=== PATIENT | male | born 1945 | race Hispanic/Latino ===

== ENCOUNTER → 2018-10-29 | Outpatient (CLI) | payer OTHER ==
[~2018-10-29] MED LIST: DM/P1POW2 PO; DOCU100T9 PO; GABA300S PO; GLIP5TAB11 PO; INSU100V33 SQ; LISI-613 PO; LOVA10TA2 PO; METF-446 PO; METO25TA6 PO; RANI150T7 PO
== END | disposition home or self-care (01) ==
LOC: RAH 12:23
PROVIDERS: ATTEND Internal Medicine
DX: M17.0 Bilateral primary osteoarthritis of knee (principal); M11.262 Other chondrocalcinosis, left knee; M11.261 Other chondrocalcinosis, right knee
CPT/HCPCS: 73562

== ENCOUNTER → 2019-04-14 | Outpatient (CLI) | payer OTHER | END | disposition home or self-care (01) | LOC: RAH 10:36 | PROVIDERS: ATTEND Internal Medicine | DX: M47.816 Spondylosis without myelopathy or radiculopathy, lumbar region (principal) | CPT/HCPCS: 72100 ==

== ENCOUNTER → 2019-05-19 | Outpatient (CLI) | payer OTHER | END | disposition home or self-care (01) | LOC: RAH 14:40 | PROVIDERS: ATTEND Internal Medicine | DX: M46.1 Sacroiliitis, not elsewhere classified (principal); M54.5 Low back pain; M54.2 Cervicalgia; M48.061 Spinal stenosis, lumbar region without neurogenic claudication; M47.816 Spondylosis without myelopathy or radiculopathy, lumbar region; M12.88 Other specific arthropathies, not elsewhere classified, other specified site; M54.16 Radiculopathy, lumbar region | CPT/HCPCS: 72148 ==

== ENCOUNTER → 2019-07-07 | Outpatient (CLI) | payer OTHER ==
[~2019-07-07] VITALS: Ht 167.6 cm; Wt 87.5 kg
[~2019-07-07] MED LIST changes: +REGADENOSON 0.4 MG/5 ML PF SYG IVP SCH
== END | disposition home or self-care (01) ==
LOC: SHCH 08:28
PROVIDERS: ATTEND Internal Medicine Cardiovascular Disease
DX: Z01.818 Encounter for other preprocedural examination (principal); R06.00 Dyspnea, unspecified
CPT/HCPCS: 78452; 93017; 96374; A9500 ×2; J2785

== ENCOUNTER → 2019-07-25 | Outpatient (CLI) | payer OTHER ==
[~2019-07-25] MED LIST changes: -REGADENOSON 0.4 MG/5 ML PF SYG IVP SCH
== END | disposition home or self-care (01) ==
LOC: SHCH 15:07
PROVIDERS: ATTEND Internal Medicine Cardiovascular Disease
DX: I10 Essential (primary) hypertension (principal)
CPT/HCPCS: 93306

== ENCOUNTER 2019-09-21 08:00 | Observation (INO) | payer OTHER ==
[~2019-09-21] VITALS: Ht 170.2 cm; Wt 87.8 kg
[~2019-09-21 08:00] MED LIST changes: -DM/P1POW2 PO; -GLIP5TAB11 PO; -INSU100V33 SQ; -LOVA10TA2 PO; -METF-446 PO; -RANI150T7 PO
[2019-09-21 09:47] LABS: BASOPHILS % (AUTO) 0.7 % (0.0-5.0); EOSINOPHILS % (AUTO) 2.6 % (0.0-8.0); HEMATOCRIT 44.6 % (42-54); LYMPHOCYTES % (AUTO) 28.1 % (21.0-51.0); MEAN CORPUSCULAR HEMOGLOBIN 30.3 pg (27.0-33.0); MEAN CORPUSCULAR HGB CONC 32.3 g/dL (32.0-36.0); MEAN CORPUSCULAR VOLUME 93.7 fL (79-99); MONOCYTES % (AUTO) 7.4 % (3.0-13.0); NEUTROPHILS % (AUTO) 60.9 % (40.0-77.0); PLATELET COUNT (AUTO) 198 K/uL (130-400); RED BLOOD CELL COUNT(AUTO) 4.76 MIL/uL (4.50-6.20); RED CELL DISTRIBUTION WIDTH 13.6 % (11.0-15.5); WHITE BLOOD COUNT (AUTO) 9.8 K/uL (4.8-10.8)
[2019-09-21 09:58] LABS: CREATININE 1.1 mg/dL (0.5-1.5); POTASSIUM 4.8 mmol/L (3.5-5.1)
[2019-09-21 10:32] VITALS: BP 149/70
[2019-09-21] MEDS ORDERED: TRAM50TA4 PO (10:35)
[2019-09-21] MEDS ORDERED: METF-444 PO (10:35)
[2019-09-23] VITALS (23 sets, daily range): BP systolic 132–190; BP diastolic 57–92
[2019-09-23] MEDS ORDERED: SODIUM CHLORIDE 0.9% 1000ML 1,000 ML IV ONE (05:58)
[2019-09-23] MEDS ORDERED: LIDOCAINE PF 2% 5ML ABBOJECT ONE (06:39)
[2019-09-23] MEDS ORDERED: SUCCINYLCHOLINE 200MG/10ML SYR ONE (06:39)
[2019-09-23] MEDS ORDERED: PROPOFOL 10 MG/ML 20ML VIAL IV ONE (06:39)
[2019-09-23] MEDS ORDERED: DEXAMETHASONE SOD PHOSPHATE 10MG/ML 1ML VIAL ONE ×2 (06:40→07:03)
[2019-09-23] MEDS ORDERED: GLYCOPYRROLATE 1 MG/5 ML SYRINGE ONE (06:40)
[2019-09-23] MEDS ORDERED: NEOSTIGMINE 5MG/5ML SYR IV ONE (06:40)
[2019-09-23] MEDS ORDERED: MIDAZOLAM HCL 1 MG/ML 2ML VIAL ONE (06:40)
[2019-09-23] MEDS ORDERED: ONDANSETRON HCL 4 MG/2 ML VIAL ONE (06:40)
[2019-09-23] MEDS ORDERED: ROCURONIUM 10MG/1ML SYR 10 MG/ML ML ONE (06:40)
[2019-09-23] MEDS ORDERED: FENTANYL CITRATE PF 50 MCG/1 ML 2ML VIAL ONE ×2 (06:41→09:55)
[2019-09-23] MEDS ORDERED: BUPIVACAINE/EPI/PF 0.5% 30ML VIAL IJ ONE (06:59)
[2019-09-23] MEDS ORDERED: DURAMORPH PF1 MG/ML 10ML AMP IV ONE (06:59)
[2019-09-23] MEDS ORDERED: CEFAZOLIN SODIUM 1 GM VIAL ONE ×2 (06:59→07:17)
[2019-09-23] MEDS ORDERED: THROMBIN-JMI 20000 UNIT KIT TP ONE (07:00)
[2019-09-23] MEDS ORDERED: EPHEDRINE SULFATE 50 MG/ML AMPULE ONE (07:03)
[2019-09-23] MEDS ORDERED: ARTIFICIAL TEARS 3.5 GM OINTMENT ONE (08:18)
[2019-09-23] MEDS ORDERED: SODIUM CHLORIDE 0.9% 10 ML VIAL IVP PRN (10:15)
[2019-09-23] MEDS ORDERED: PROMETHAZINE HCL 25 MG/ML 1ML AMPULE IM PRN (10:15)
[2019-09-23] MEDS ORDERED: TRAMADOL HCL 50 MG TABLET PO PRN ×2 (10:15→10:30)
[2019-09-23] MEDS ORDERED: CEFAZOLIN SODIUM 1 GM VIAL IVP SCH (10:15)
[2019-09-23] MEDS ORDERED: LACTATED RINGERS 1000ML 1,000 ML IV SCH (10:15)
[2019-09-23] MEDS ORDERED: LABETALOL HCL 5 MG/ML 20ML VIAL IV ONE (10:44)
[2019-09-23] MEDS ORDERED: MEPERIDINE-PF 25 MG/ML SYG ONE ×2 (10:54→11:04)
[2019-09-23] MEDS: DEXAMETHASONE SOD PHOSPHATE 4 MG/ML 1ML VIAL IVP SCH ×3 (12:43→22:15)
--- NOTE | 2019-09-23 14:01 | NUR ---
SORAYA LIRA drain started as directed 4 hours post sx
--- NOTE | 2019-09-23 15:57 | NUR ---
[id number] patient signed CARRANZA Letter, I faxed CARRANZA Letter to [id number] and placed in chart under consent tab
[2019-09-23] MEDS: HYDROCODONE/ACETAMINOPHEN 5/325 MG TAB PO PRN ×2 (16:24→19:41)
[2019-09-23] MEDS: METOPROLOL TARTRATE 25 MG TAB PO SCH (19:40)
[2019-09-23] MEDS: GABAPENTIN 300 MG CAPSULE PO SCH (19:40)
[2019-09-23] MEDS: METFORMIN HCL 500 MG TABLET PO SCH (19:41)
[2019-09-23] MEDS: DOCUSATE SODIUM 100 MG CAP PO SCH (19:41)
--- NOTE | 2019-09-23 20:45 | NUR ---
AMBULATION PATIENT ABLE TO AMBULATE ALL AROUND THE [place] ON FOURTH FLOOR WITH NO DIZZINESS, NAUSEA, OR SOB. DRESSING TO LOWER BACK WAS REINFORCED BY DAY RN AND IS HOLDING. SORAYA DRAIN IN PLACE ASWELL.
[2019-09-23] MEDS: INSULIN HUMULIN R 100 UNIT/ML 3ML SQ SCH (21:00)
[2019-09-23] MEDS: MORPHINE SULFATE 2 MG/ML 1ML SYG IVP PRN (22:01)
[2019-09-24 00:08] VITALS: BP 150/65
[2019-09-24] MEDS: HYDROCODONE/ACETAMINOPHEN 5/325 MG TAB PO PRN ×2 (00:47→08:13)
[2019-09-24] MEDS: MORPHINE SULFATE 2 MG/ML 1ML SYG IVP PRN ×2 (02:51→05:09)
[2019-09-24] MEDS: DEXAMETHASONE SOD PHOSPHATE 4 MG/ML 1ML VIAL IVP SCH (03:45)
[2019-09-24 04:00] VITALS: BP 127/74
[2019-09-24] MEDS: INSULIN HUMULIN R 100 UNIT/ML 3ML SQ SCH (05:59)
[2019-09-24] MEDS: METFORMIN HCL 500 MG TABLET PO SCH (08:13)
[2019-09-24 08:21] VITALS: BP 131/83
[2019-09-24] MEDS ORDERED: LISINOPRIL 20 MG TABLET PO SCH (09:00)
[2019-09-24] MEDS: DOCUSATE SODIUM 100 MG CAP PO SCH (09:27)
[2019-09-24] MEDS: METOPROLOL TARTRATE 25 MG TAB PO SCH (09:27)
[2019-09-24] MEDS: GABAPENTIN 300 MG CAPSULE PO SCH (09:27)
--- NOTE | 2019-09-24 10:30 | NUR ---
dressing changed to pt's lower back and lavinia drain removed; pt has a well approx. inc. line with jenaro in place, no redness or edema noted, slight fresh bloody drainage noted; area cleansed with betadine then dry gauze dressing applied; pt was pre-medicated with pain pills and tolerated proc. well; pt's was at bedside and watched the process and stated understanding of wound care instructions that i gave them.
--- NOTE | 2019-09-24 11:10 | NUR ---
pt and stated understanding of all d/c instructions on after care for a laminectomy surgery including---f/u appointment, inc. line care, activity restrictions, signs and symptoms to watch for and report to md and pain medications--script for toradol given; i have also given the patient a staple removed kit and instructed pt to take this with them on f/u appointment with dr borja; pt's here to drive him home.
== END 2019-09-24 11:48 | disposition home or self-care (01) ==
LOC: DAHIP 09-23 05:44 → EDSTATUS 09-23 08:00 → 4AH 09-23 11:13
PROVIDERS: ADMIT Neurological Surgery; ATTEND Neurological Surgery
DX: M48.061 Spinal stenosis, lumbar region without neurogenic claudication (principal); E11.9 Type 2 diabetes mellitus without complications; E78.00 Pure hypercholesterolemia, unspecified; I10 Essential (primary) hypertension; J44.9 Chronic obstructive pulmonary disease, unspecified; Z79.84 Long term (current) use of oral hypoglycemic drugs; Z79.899 Other long term (current) drug therapy
CPT/HCPCS: 36415; 63047; 63048; 72020; 80048; 82948 ×5; 85025; 96374; 96375 ×2; 96376 ×3; A4215; A4221; A4222; A4223; A4344; A4510; A4600; A4649 ×4; A4663; A6260; G0378 ×26; J0330; J0690 ×3; J1100 ×5; J2001; J2175 ×2; J2250; J2274; J2405; J2704; J2710; J3010 ×2; J3490 ×4; J7030 ×2; J7120

== ENCOUNTER → 2019-10-23 | Outpatient (CLI) | payer OTHER ==
[~2019-10-23] MED LIST changes: +METF-444 PO; +TRAM50TA4 PO
== END | disposition home or self-care (01) ==
LOC: OIH 10:15
PROVIDERS: ATTEND Neurological Surgery
DX: M51.34 Other intervertebral disc degeneration, thoracic region (principal)
CPT/HCPCS: 72070

== ENCOUNTER → 2020-01-14 | Outpatient (CLI) | payer OTHER | END | disposition home or self-care (01) | LOC: RAH 14:43 | PROVIDERS: ATTEND Internal Medicine | DX: I70.0 Atherosclerosis of aorta (principal); R05 Cough; M47.894 Other spondylosis, thoracic region | CPT/HCPCS: 71046 ==

== ENCOUNTER → 2020-02-03 | Outpatient (CLI) | payer OTHER | END | disposition home or self-care (01) | LOC: RAH 10:00 | PROVIDERS: ATTEND Internal Medicine | DX: M51.26 Other intervertebral disc displacement, lumbar region (principal); M48.061 Spinal stenosis, lumbar region without neurogenic claudication; M47.814 Spondylosis without myelopathy or radiculopathy, thoracic region; M51.24 Other intervertebral disc displacement, thoracic region | CPT/HCPCS: 72146; 72148 ==

== ENCOUNTER → 2023-08-12 | Outpatient (CLI) | payer OTHER ==
[~2023-08-12] MED LIST changes: -GABA300S PO; +GABA300S3 PO; -LISI-613 PO; +LISI20TA24 PO
== END | disposition home or self-care (01) ==
LOC: RAH 10:25
PROVIDERS: ATTEND Internal Medicine
DX: J44.1 Chronic obstructive pulmonary disease with (acute) exacerbation (principal); J44.9 Chronic obstructive pulmonary disease, unspecified; R05.1 Acute cough
CPT/HCPCS: 71046

== ENCOUNTER → 2024-02-11 | Outpatient (CLI) | payer OTHER ==
[~2024-02-11] MED LIST changes: +PRED20TA3 PO
== END | disposition home or self-care (01) ==
LOC: RAH 13:25
DX: M47.26 Other spondylosis with radiculopathy, lumbar region (principal); M51.36 Other intervertebral disc degeneration, lumbar region; M51.17 Intervertebral disc disorders with radiculopathy, lumbosacral region; M48.07 Spinal stenosis, lumbosacral region
CPT/HCPCS: 72148

== ENCOUNTER → 2024-02-20 | Outpatient (CLI) | payer OTHER | END | disposition home or self-care (01) | LOC: RAH 10:45 | PROVIDERS: ATTEND Family Medicine | DX: M16.12 Unilateral primary osteoarthritis, left hip (principal); K57.30 Diverticulosis of large intestine without perforation or abscess without bleeding | CPT/HCPCS: 73721 ==

== ENCOUNTER → 2024-12-14 | Outpatient (CLI) | payer OTHER ==
--- NOTE | 2024-12-14 10:52 | HMCIMG ---
Exam Type: CHEST 2VWS Clinical Information: Chest pain Comparison: None Findings: The lungs are clear of infiltrates. The heart is normal in size. The bony and soft tissue structures of the chest are unremarkable. Impression: Clear lungs.
== END | disposition home or self-care (01) ==
LOC: RAH 10:05
PROVIDERS: ATTEND Internal Medicine
DX: R07.9 Chest pain, unspecified (principal)
CPT/HCPCS: 71046

== ENCOUNTER → 2025-03-29 | Outpatient (CLI) | payer OTHER ==
--- NOTE | 2025-03-29 13:04 | HMCIMG ---
EXAM: XR Chest, 1 View. CLINICAL HISTORY: 79-year-old male with shortness of breath. COMPARISON: 12/14/2024 at 10:19. FINDINGS: LUNGS: The lungs are clear. No consolidation. PLEURAL SPACES: No pleural effusion or pneumothorax. HEART: The heart size is normal. BONES: No acute osseous abnormality. IMPRESSION: 1. No acute cardiopulmonary pathology. /[place]
== END | disposition home or self-care (01) ==
LOC: RAH 09:36
PROVIDERS: ATTEND Nurse Practitioner Family
DX: J20.9 Acute bronchitis, unspecified (principal); R06.02 Shortness of breath
CPT/HCPCS: 71046

== ENCOUNTER → 2025-04-01 | Outpatient (CLI) | payer OTHER ==
--- NOTE | 2025-04-02 00:05 | HMCIMG ---
EXAM: MR Lumbar Spine Without Intravenous Contrast. CLINICAL HISTORY: Spinal stenosis. Neurogenic claudication. TECHNIQUE: Magnetic resonance images of the lumbar spine in multiple planes. CONTRAST: None. COMPARISON: MRI of the lumbar spine. 02/11/2024. FINDINGS: For this examination, spinal levels were labeled assuming five [id number], lumbar-type vertebrae, with the inferior labeled L5. No acute fracture. L4-L5 laminectomy. Loss of the normal lumbar lordosis. Multilevel anterior osteophytes. Moderate reduction in L5-S1 intervertebral disc height with Modic type II degenerative endplate changes. Mild reduction in L4-L5 intervertebral disc height. Normal vertebral body heights. Normal marrow signal of the vertebrae. Conus medullaris terminates at the T12-L1 level. No abnormal epidural masses. The surrounding soft tissues are unremarkable. Individual spinal levels are described as follows: T12-L1: No disc bulge or herniation. No neural foraminal, lateral recess, or spinal canal stenosis. L1-L2: Mild disc bulge of 1 mm. No neural foraminal, lateral recess, or spinal canal stenosis. L2-L3: Mild disc bulge of 2 mm indenting the anterior thecal sac. Mild narrowing of both the lateral recesses and neuroforamina. Mild canal narrowing. L3-L4: Moderate disc bulge of 3 mm indenting the anterior thecal sac and abutting bilateral traversing L4 nerve roots. Moderate narrowing of both the lateral recesses and neuroforamina. Moderate ligamentum flavum hypertrophy. Moderate canal narrowing. L4-L5: Mild disc bulge of 2 mm indenting the anterior thecal sac. Moderate narrowing of both the lateral recesses and neuroforamina. No spinal canal narrowing. L5-S1: Mild disc bulge of 2 mm indenting the anterior thecal sac. Moderate narrowing of both the lateral recesses and neuroforamina abutting bilateral exiting L5 nerve roots. No spinal canal narrowing. IMPRESSION: 1. No acute fracture or subluxation. Loss of the normal lumbar lordosis could be secondary to muscular spasm. Multilevel anterior osteophytes. Moderate reduction in L5-S1 intervertebral disc height with Modic type II degenerative endplate changes. Mild reduction in L4-L5 intervertebral disc height. 2. Moderate lumbar spondylosis is most pronounced at the L3-L4 level with a moderate disc bulge of 3 mm indenting the anterior thecal sac and abutting bilateral traversing L4 nerve roots. Moderate narrowing of both the lateral recesses and neuroforamina. Moderate ligamentum flavum hypertrophy. Moderate canal narrowing. 3. Moderate narrowing of L4-L5 and L5-S1 bilateral lateral recesses and neuroforamina. Mild narrowing of L2-L3 bilateral lateral recesses and neuroforamina. 4. Mild L2-L3 spinal canal narrowing. No significant interval worsening as compared to prior MRI. /[place]
== END | disposition home or self-care (01) ==
LOC: RAH 07:33
PROVIDERS: ATTEND Neurological Surgery
DX: M47.27 Other spondylosis with radiculopathy, lumbosacral region (principal); M51.17 Intervertebral disc disorders with radiculopathy, lumbosacral region; M48.07 Spinal stenosis, lumbosacral region; G89.4 Chronic pain syndrome; M40.46 Postural lordosis, lumbar region; M25.78 Osteophyte, vertebrae
CPT/HCPCS: 72148